=== PATIENT | female | born 1965 | race Caucasian/White ===

== ENCOUNTER 2019-12-18 15:29 | Emergency (ER) | payer SELFPAY ==
[2019-12-18 15:43] VITALS: BP 134/63
--- NOTE | 2019-12-18 15:43 | ER Document Report ---
ED General - General Chief Complaint: Allergic Reaction Stated Complaint: WHEEZING Notes: Patient is a 54-year-old white female with a history of asthma and severe allergies who presents the emergency department with chief complaint of allergic reaction that occurred prior to arrival. Patient states she was at work when someone came and must of been wearing a lavender based perfume, very heavily. Patient reports that she inhaled a large amount of this while breathing next to the person and suddenly felt short of breath. She states she began wheezing and felt like she was having an asthma attack. They called EMS that she did not have her inhaler medications with her. EMS gave steroids and breathing treatments and the patient reports that she feels significantly better upon arrival here. She states that she is currently asymptomatic and would like to be discharged home. She denies any further pain, complaints or concerns at this time. - Related Data Allergies/Adverse Reactions: lavender (Lavandula angustifolia) Allergy (Severe, Verified 12/18/19 15:36) empagliflozin Allergy (Verified 12/18/19 15:36) methimazole Allergy (Verified 12/18/19 15:36) propylthiouracil Allergy (Verified 12/18/19 15:36) Past Medical History - Social History Smoking Status: Unknown if Ever Smoked Family History: Reviewed & Not Pertinent Review of Systems - Review of Systems Constitutional: denies: Fever EENT: denies: Eye pain Cardiovascular: denies: Chest pain Respiratory: Cough, Wheezing Gastrointestinal: denies: Abdominal pain Genitourinary: denies: Burning Female Genitourinary: denies: Musculoskeletal: denies: Back pain Skin: denies: Change in color Hematologic/Lymphatic: denies: Anemia Neurological/Psychological: denies: Confusion Physical Exam - General General appearance: Appears well, Alert In distress: None - HEENT Head: Normocephalic, Atraumatic Eyes: Normal Conjunctiva: Normal Extraocular movements intact: Yes Eyelashes: Normal Pupils: PERRL Ears: Normal External canal: Normal Nasal: Normal Mouth/Lips: Normal Mucous membranes: Normal Pharynx: Normal Neck: Normal, Supple - Respiratory Respiratory status: No respiratory distress Chest status: Nontender Breath sounds: Normal Chest palpation: Normal - Cardiovascular Rhythm: Regular Heart sounds: Normal auscultation Murmur: No - Extremities General upper extremity: No: Edema General lower extremity: No: Edema - Neurological Neuro grossly intact: Yes Cognition: Normal Orientation: AAOx4 [place] Coma Scale Eye Opening: Spontaneous Gita Coma Scale Verbal: Oriented [place] Coma Scale Motor: Obeys Commands [place] Coma Scale Total: 15 Speech: Normal Sensory: Normal - Psychological Associated symptoms: Normal affect, Normal mood - Skin Skin Temperature: Warm Skin Moisture: Dry Skin Color: Normal Course - Re-evaluation Re-evalutation: 12/18/19 15:42 Patient is well-appearing and in no acute distress upon arrival here from EMS. She is asymptomatic. Normal physical exam. She is stable and appropriate for discharge and outpatient follow-up. She has medications at home for asthma as prescribed as needed. Discussed with her the importance of outpatient follow-up and advised that she return here or any ER immediately with any new, persistent or worsening symptoms. She verbalized understood and agreed. Discharge - Discharge Clinical Impression: Allergic reaction Qualifiers: Encounter type: initial encounter Qualified Code(s): T78.40XA - Allergy, unspecified, initial encounter Asthma exacerbation Qualifiers: Asthma severity: unspecified severity Asthma persistence: unspecified Qualified Code(s): J45.901 - Unspecified asthma with (acute) exacerbation Condition: Stable Disposition: HOME, SELF-CARE Instructions: Acute Allergic Reaction ([facility]) Additional Instructions: Follow-up with your regular doctor in 2 to 3 days for reevaluation. Return here or any ER immediately with any new, persistent or worsening symptoms. Referrals: [facility] [NO LOCAL MD] - Follow up as needed
== END 2019-12-18 15:48 | disposition home or self-care (01) ==
LOC: ER 15:29
DX: T78.40XA Allergy, unspecified, initial encounter (principal); J45.901 Unspecified asthma with (acute) exacerbation; X58.XXXA Exposure to other specified factors, initial encounter
CPT/HCPCS: 99283